=== PATIENT | female | born 2000 | race Two or more races ===

== ENCOUNTER 2023-07-25 13:13 | Emergency (ER) | payer MEDICAID ==
[~2023-07-25] VITALS: Ht 167.6 cm; Wt 97.2 kg
[2023-07-25 13:21] VITALS: BP 119/59; PULSE 79; RESP 16; O2SAT 98
== END 2023-07-26 08:14 | disposition left against medical advice (07) ==
LOC: ER 13:13
DX: R10.30 Lower abdominal pain, unspecified (principal); Z53.21 Procedure and treatment not carried out due to patient leaving prior to being seen by health care provider